=== PATIENT | female | born 1970 | race African-American/Black ===

== ENCOUNTER 2018-10-18 11:21 | Emergency (ER) | payer SELFPAY ==
--- NOTE | 2018-10-18 12:01 | PDOC ---
Rapid Medical Evaluation Time Seen by Provider: 10/18/18 11:59 Medical Evaluation: 10/18/18 11:59 I have performed a brief in-person evaluation of this patient. The patient presents with a chief complaint of: hemorrhoids - "i feel big swelling and it really hurts" x 2 weeks. painful to sit. has hx of rectal bleeding from hemorrhoids. Pertinent physical exam findings: N/A I have ordered the following: nothing The patient will proceed to the ED for further evaluation.
[2018-10-18 12:04] VITALS: PULSE 103; TEMP 98.5; BMI 30.7
[2018-10-18 12:06] VITALS: BP 136/85
--- NOTE | 2018-10-18 14:30 | PDOC ---
History of Present Illness - General Chief Complaint: Pain Stated Complaint: PAIN IN RECTUM Time Seen by Provider: 10/18/18 11:59 History Source: Patient Exam Limitations: No Limitations - History of Present Illness Initial Comments: 10/18/18 14:00 47 yo female pmh hemorrhoids presents to the ED with pain around her rectum. Pt has had many hemorrhoids in the past, seen GI, treated with creams with improvement however, this episode is not improving after 2 weeks of treatment which is unusual. Pt does not strain on the toilet and has changed her diet to high fiber however, continues to have recurrent hemorrhoids. Past History - Past Medical History Home Medications: Ambulatory Orders NK [No Known Home Medication] 10/18/18 COPD: No - Immunization History Immunization Up to Date: No - Suicide/Smoking/Psychosocial Hx Smoking History: Never smoked Hx Alcohol Use: No Drug/Substance Use Hx: No *Physical Exam - Vital Signs Last Vital Signs Temp Pulse Resp BP Pulse Ox 98.5 F 103 H 18 136/85 98 10/18/18 11:59 10/18/18 11:59 10/18/18 11:59 10/18/18 11:59 10/18/18 11:59 *DC/Admit/Observation/Transfer Diagnosis at time of Disposition: External hemorrhoid - Discharge Dispostion Disposition: HOME Condition at time of disposition: Stable Decision to Admit order: No - Referrals Referrals: Navneet Mcneil MD [Staff Physician] - [facility] [Provider Group] - Patient Instructions Printed Discharge Instructions: DI for Hemorrhoids, DI for Hemorrhoidectomy Additional Instructions: Please make an appointment with the GI doctor referred to you within the next 24 hours. You will receive a call back with an appointment to the Primary Care office within the next 48 hours. Return to the ER for new or concerning symptoms including but not limited to: excessive bleeding from the incision site , severe pain/swelling/warmth/drainage from the incision site, high fevers. The incision will heal on its own Thank you - Post Discharge Activity
[2018-10-18] MEDS ORDERED: LIDOCAINE 1%/EPI 1:100000 (20 ML MULTI DOSE VIAL) ONE (14:41)
--- NOTE | 2018-10-18 14:46 | PDOC ---
Documentation entered by Josh Nunez SCRIBE, acting as scribe for Jerel Aguayo MD. Jerel Aguayo MD: This documentation has been prepared by the Mayra martínez Nirvannie, SCRIBE, under my direction and personally reviewed by me in its entirety. I confirm that the documentation accurately reflects all work, treatment, procedures, and medical decision making performed by me. Attending Attestation - Resident Resident Name: Jonathon Traore - ED Attending Attestation I have performed the following: I have examined & evaluated the patient, The case was reviewed & discussed with the resident, I agree w/resident's findings & plan, Exceptions are as noted - HPI HPI: 10/18/18 14:41 The patient is a 47 year old female, with a significant past medical history of hemorrhoids, who presents to the emergency department with, hemorrhoid pain with swelling. Patient notes usually using cream on her hemorrhoids with relief , however, she has been using cream for 2 weeks without relief. She denies recent fevers, chills, headache or dizziness. She denies recent nausea, vomit, diarrhea or constipation. She denies recent dysuria, frequency, urgency or hematuria. She denies recent chest pain or shortness of breath. Allergies: NKDA - Physicial Exam PE: 10/18/18 14:42 GENERAL: The patient is awake, alert, and fully oriented, Nontoxic - in no acute distress. ABDOMEN: Soft, nontender, No guarding, no rebound.No CVA tenderness RECTUM: +Firm tender external hemorrhoid approx 1x1cm - Medical Decision Making 10/18/18 14:12 hx of herorrhids no improvement with hemarroid cream. pain worsening feels painful and harder likely thrombosed hemorroid 10/18/18 14:44 attempted to I&D with some bleeding without extraction of thrombus will refer to GI
== END 2018-10-18 14:53 | disposition home or self-care (01) ==
LOC: JER 11:21
PROC: 069Y0ZZ Drainage of Lower Vein, Open Approach (ICD-10-PCS; principal; 2018-10-18)
DX: K64.4 Residual hemorrhoidal skin tags (principal)
CPT/HCPCS: 99281-25

== ENCOUNTER 2019-07-05 10:48 | Emergency (ER) | payer OTHER ==
[2019-07-05 10:59] VITALS: BMI 31.2
--- NOTE | 2019-07-05 11:26 | PDOC ---
History of Present Illness - General Chief Complaint: Chest Pain Stated Complaint: COLD SYMPTOMS Time Seen by Provider: 07/05/19 11:12 History Source: Patient Exam Limitations: No Limitations - History of Present Illness Initial Comments: 07/05/19 11:26 Stephanie Carreon is an otherwise health 48F presenting with 4 days of cough and myalgias. Was feeling well 5 days ago, started having mild cough 4 days ago that has progressed to myalgias and intermittent cough with chills, poor PO intake, here today for evaluation as cough has gotten worse and is having chest pain from coughing so much. Denies any cardiac history, [place], CVA, palpitations, SOB, dizziness, history of HTN. Denies abdominal pain, diarrhea, urinary sx, vision changes. Denies any sick contacts at home, did not get flu shot this year, has and daughter in 1st grade who is not sick. No recent long-distance travel, stays at home with daughter. No known allergies. No medications taken daily. No PSH. No tobacco/alcohol/drug use. Past History - Past Medical History Allergies/Adverse Reactions: Allergies Allergy/AdvReac Type Severity Reaction Status Date / Time No Known Allergies Allergy Verified 07/05/19 10:53 Home Medications: Ambulatory Orders NK [No Known Home Medication] 10/18/18 COPD: No - Immunization History Immunization Up to Date: No - Psycho Social/Smoking Cessation Hx Smoking History: Never smoked Hx Alcohol Use: No Drug/Substance Use Hx: No Review of Systems - Review of Systems Able to Perform ROS?: Yes Constitutional: Yes: Chills. No: Fever HEENTM: No: Blurred Vision, Double Vision, Hearing Loss, Throat Pain Respiratory: Yes: Cough. No: Shortness of Breath, SOB with Exertion, SOB at Rest Cardiac (ROS): Yes: Chest Pain. No: Irregular Heart Rate, Lightheadedness, Palpitations, Syncope, Chest Tightness ABD/GI: Yes: Poor Appetite, Poor Fluid Intake. No: Constipated, Diarrhea, Nausea, Vomiting : No: Burning, Dysuria, Discharge, Frequency, Flank Pain, Hematuria Musculoskeletal: Yes: Muscle Pain. No: Back Pain, Joint Pain, Muscle Weakness Integumentary: No: Symptoms Reported Neurological: No: Headache, Numbness, Paresthesia, Unsteady Gait, Ataxia, Dizziness Endocrine: No: Symptoms Reported Hematologic/Lymphatic: No: Symptoms Reported All Other Systems: Reviewed and Negative *Physical Exam - Vital Signs Last Vital Signs Temp Pulse Resp BP Pulse Ox 98.5 F 113 H 18 201/85 H 98 07/05/19 10:54 07/05/19 10:54 07/05/19 10:54 07/05/19 10:54 07/05/19 10:54 - Physical Exam General Appearance: Yes: Nourished, Appropriately Dressed. No: Apparent Distress HEENT: positive: EOMI, SHEILA, Normal Voice, Symmetrical, Pharynx Normal, Hearing Grossly Normal. negative: Scleral Icterus (R), Scleral Icterus (L), Muffled/ Hoarse voice Neck: positive: Trachea midline, Normal Thyroid, Supple. negative: Tender, Rigid, Lymphadenopathy (R), Lymphadenopathy (L), Tender lateral, Tender midline Respiratory/Chest: positive: Lungs Clear, Normal Breath Sounds. negative: Chest Tender, Respiratory Distress, Accessory Muscle Use, Crackles, Rales, Rhonchi, Stridor, Wheezing Cardiovascular: positive: Regular Rhythm, Regular Rate. negative: Murmur Gastrointestinal/Abdominal: positive: Normal Bowel Sounds, Flat, Soft. negative : Tender, Pulsatile Mass, Guarding, Rebound Musculoskeletal: positive: Normal Inspection. negative: CVA Tenderness, Decreased Range of Motion, Vertebral Tenderness Extremity: positive: Normal Capillary Refill, Normal Inspection, Normal Range of Motion, Pelvis Stable. negative: Tender, Pedal Edema, Swelling, Calf Tenderness Integumentary: positive: Normal Color, Dry, Warm Neurologic: positive: Fully Oriented, Alert, Normal Mood/Affect, Normal Response , Motor Strength 5/5 ED Treatment Course - LABORATORY CBC & Chemistry Diagram: 07/05/19 11:49 07/05/19 11:49 Medical Decision Making - Medical Decision Making 07/05/19 14:08 Patient presents with cough, chills, and myalgias highly consistent with viral URI. However, also complaining of chest pain and has HTN with SBP 200s, no PMH HTN. Will re-evaluate BP for cardiac disease. - CBC/CMP - ECG/CXR/CP Labs notable for: - CMP WNL - CBC WNL - CP WNL - Ofirmev and 1L NS for symptomatic control Repeat VS BP 132/79, HR 81, RR 12, temp 98.2, PO2 97%RA. ECG shows sinus tachycardia with HR 113, QRS 68, QTc 430, no TWI or ischemic changes. CXR shows kia cute chest pathology. 07/05/19 17:08 Patient has likely viral URI i.e. influenza, no active chest pain, no concerning ECG or trop elevation, will discharge home with PMD f/u. Discharge - Discharge Information Problems reviewed: Yes Clinical Impression/Diagnosis: Myalgia URI (upper respiratory infection) Qualifiers: URI type: unspecified viral URI Qualified Code(s): J06.9 - Acute upper respiratory infection, unspecified Condition: Stable Disposition: HOME - Admission No - Follow up/Referral - Patient Discharge Instructions Patient Printed Discharge Instructions: DI for Influenza -- Adult Additional Instructions: Today you were evaluated for cough, muscle aches, and chills. We evaluated your blood works and did not find infection, heart disease, or electrolyte abnormalities. Your symptoms are likely being caused by a virus such as the flu. At home, please drink lots of soup and sports drinks to stay hydrated, and take Tylenol or Motrin every 4-6 hours for fever and muscle aches. Please follow -up with your primary doctor in the next few days for further care. If you experience worsening chest pain, difficulty breathing, fever, become unable to walk, or have any other new or concerning symptoms, please return to the emergency room. - Post Discharge Activity
[2019-07-05] MEDS ORDERED: SODIUM CHLORIDE 1,000 ML IV STA (11:28)
[2019-07-05] MEDS ORDERED: ACETAMINOPHEN 1000 MG/100 ML VIAL (NON FORMULARY) IVPB ONE (12:00)
[2019-07-05] MEDS ORDERED: ACETAMINOPHEN INJECTION 100 ML IVPB ONE (12:03)
[2019-07-05 12:16] LABS: BASO % 0.9 % (0-2.0); EOS % 1.4 % (0-4.5); HEMATOCRIT 32.7 % (32.4-45.2); HEMOGLOBIN 10.3 GM/dL (10.7-15.3); LYMPH % 32.7 % (8-40); MCH 25.5 pg (25.7-33.7); MCHC 31.4 g/dl (32.0-36.0); MEAN CELL VOLUME 81.2 fl (80-96); MEAN PLT VOLUME 9.5 fl (7.5-11.1); MONO % 10.1 % (3.8-10.2); NEUT % 54.9 % (42.8-82.8); PLATELET COUNT 291 K/MM3 (134-434); RBC 4.03 M/mm3 (3.60-5.2); RDW 18.9 % (11.6-15.6); WHITE BLOOD COUNT 4.6 K/mm3 (4.0-10.0)
[2019-07-05 12:49] LABS: ALBUMIN 3.6 g/dl (3.4-5.0); ALK PHOS 74 U/L (45-117); ANION GAP 6 MMOL/L (8-16); BILIRUBIN,TOTAL 0.3 mg/dL (0.2-1); BLOOD UREA NITROGEN 8.3 mg/dL (7-18); CALCIUM 8.6 mg/dL (8.5-10.1); CHLORIDE 107 mmol/L (98-107); CO2 27 mmol/L (21-32); CREATININE 0.9 mg/dL (0.55-1.3); GLUCOSE,RANDOM 105 mg/dL (74-106); POTASSIUM 3.6 mmol/L (3.5-5.1); SGOT/AST 12 U/L (15-37); SGPT/ALT 14 U/L (13-61); SODIUM 140 mmol/L (136-145); TOT PROT 6.6 g/dl (6.4-8.2)
--- NOTE | 2019-07-05 13:10 | PDOC ---
Documentation entered by Josh Nunez SCRIBE, acting as scribe for Marck Riggins MD. Marck Riggins MD: This documentation has been prepared by the Mayra martínez Nirvannie, SCRIBE, under my direction and personally reviewed by me in its entirety. I confirm that the documentation accurately reflects all work, treatment, procedures, and medical decision making performed by me. Attending Attestation - Resident Resident Name: RadhajulioTyrell - ED Attending Attestation I have performed the following: I have examined & evaluated the patient, The case was reviewed & discussed with the resident, I agree w/resident's findings & plan, Exceptions are as noted - HPI HPI: 07/05/19 12:57 CC: Cough and myalgias. HPI: The patient is a 48 year old female, with a significant past medical history of hemorrhoids, who presents to the emergency department with 4 days of cough and myalgias. She denies recent dysuria, frequency, urgency or hematuria. She denies recent chest pain or shortness of breath. Allergies: NKDA - Physicial Exam PE: 07/05/19 16:40 Vitals: Triage Vital signs reviewed General Appearance: No acute distress, well nourished well developed, Head: Atraumatic, Cardiac: Regular rate and rhythym, no murmurs, no rubs, no gallops, Lungs: Clear to auscultation bilateral, good air movement bilaterally, Abdomen: Soft, non distended, normal bowel sounds, non tender to palpation Extremities: Full range of motion to all extremities, no cyanosis, clubbing, or edema Skin: Warm and dry, no rashes or lesions, no rash, no petechiae Psych: Normal mood, normal affect - Medical Decision Making 07/05/19 16:40 Well-appearing no apparent distress status post IV fluids and Tylenol vital signs have normalized no evidence of pneumonia no fever no white count patient feels much better after fluids and Tylenol History examination most consistent with viral URI she feels comfortable following up with her primary care provider this week Findings, need for follow-up and strict return instructions discussed with patient.
[2019-07-05 14:45] VITALS: BP 131/81; PULSE 71; TEMP 98.1
--- NOTE | 2019-07-06 14:34 | EKG ---
Test Reason : Blood Pressure : / mmHG Vent. Rate : 113 BPM Atrial Rate : 113 BPM P-R Int : 142 ms QRS Dur : 068 ms QT Int : 314 ms P-R-T Axes : 078 011 024 degrees QTc Int : 430 ms SINUS TACHYCARDIA CANNOT RULE OUT ANTERIOR INFARCT , AGE UNDETERMINED ABNORMAL ECG Confirmed by MD PATRIZIA, GABRIELA ([id number]) on 07/06/2019 2:34:01 PM Referred By: Confirmed By:GABRIELA ACHARYA MD
== END 2019-07-05 14:17 | disposition home or self-care (01) ==
LOC: JER 10:48
PROC: 3E033NZ Introduction of Analgesics, Hypnotics, Sedatives into Peripheral Vein, Percutaneous Approach (ICD-10-PCS; principal; 2019-07-05)
PROC: 3E0337Z Introduction of Electrolytic and Water Balance Substance into Peripheral Vein, Percutaneous Approach (ICD-10-PCS; 2019-07-05)
DX: J06.9 Acute upper respiratory infection, unspecified (principal); M79.10 Myalgia, unspecified site
CPT/HCPCS: 36415; 71046-TC-FY; 80053; 82550; 84484; 85025; 93005; 93010; 96361; 96374; 99282-25; J0131; J7030